=== PATIENT | female | born 1990 | race Hispanic/Latino ===

== ENCOUNTER 2021-04-26 08:05 | Inpatient (IN) | payer MEDICAID, SELFPAY ==
[2021-04-26 09:18] VITALS: BMI 35.6
[2021-04-27 08:27] VITALS: BP 100/57; TEMP 98.3
== END 2021-04-27 12:55 | disposition home or self-care (01) | DRG 419 ==
LOC: ONC 08:05
PROVIDERS: ADMIT Surgery; ATTEND Surgery
PROC: 0FT44ZZ Resection of Gallbladder, Percutaneous Endoscopic Approach (ICD-10-PCS; principal; 2021-04-26)
DX: K80.00 Calculus of gallbladder with acute cholecystitis without obstruction (principal)
CPT/HCPCS: 88304; J0171; J1100; J1885; J2405; J2543; J2704; J3010; J3480; J3490; S0020